=== PATIENT | male | born 1990 | race Caucasian/White ===

== ENCOUNTER 2020-10-14 06:12 | Day surgery (SDC) | payer OTHER ==
[~2020-10-14] VITALS: Ht 185.4 cm; Wt 94.2 kg
[~2020-10-14 06:12] MED LIST: AMOX875 PO; CODACE30 PO; PROM25 PO
--- NOTE | 2020-10-14 06:52 | NUR ---
History, Chart, Medications and Allergies reviewed before start of procedure. Lungs clear T/O to Auscultation. Patient confirms NPO status and agrees with scheduled surgery. Patient States Post-Procedure ride home has been arranged. Patient reports completing Chlorhexadine shower X2 prior to admission to hospital.
--- NOTE | 2020-10-14 09:44 | NUR ---
PT LEANNA PO WELL, IV DC'D. ALL DC INSTRUCTIONS GONE OVER, ALL QUESTIONS ANSWERED.
== END 2020-10-14 09:55 | disposition home or self-care (01) ==
LOC: ORSCMMR 06:12 → ORD 07:30 → ORSCMMR 09:55
PROVIDERS: Surgery
PROC: 0WUF0JZ Supplement Abdominal Wall with Synthetic Substitute, Open Approach (ICD-10-PCS; principal; 2020-10-14 07:30)
DX: K43.6 Other and unspecified ventral hernia with obstruction, without gangrene (principal)
CPT/HCPCS: A9270; C1781; J0330; J0690; J1100; J1885; J2250; J2370; J2405; J2704; J3010; J7120